=== PATIENT | female | born 1965 | race Two or more races ===

== ENCOUNTER → 2017-05-19 | Outpatient (REF) | payer BC | LOC: M SFHCLERA 11:31 | PROVIDERS: ATTEND Dermatology | DX: L98.9 Disorder of the skin and subcutaneous tissue, unspecified (principal) ==

== ENCOUNTER → 2025-05-31 | Outpatient (REF) | LOC: M CFLAB 13:07 | DX: N39.0 Urinary tract infection, site not specified (principal) ==

== ENCOUNTER → 2025-10-11 | Outpatient (REF) | LOC: M CFLAB 14:27 | DX: Z01.89 Encounter for other specified special examinations (principal) ==